=== PATIENT | female | born 1950 | race African-American/Black ===

== ENCOUNTER → 2017-02-28 | Day surgery (SDC) | payer BC ==
[~2017-02-28] MED LIST: AMLO10TA2 PO; ASPI-630 PO; ATOR20TA58 PO; DABI150C PO; DIPY75TA PO; DOXA1TAB2 PO; IV RINGERS,LACTATED 1000ML 1,000 ML IV SCH; LISI40TA PO; METF500T4 PO; METO-247 PO; PANT40TA5 PO; POTA20PA21 PO
--- NOTE | 2017-02-28 09:30 | PDOC1 ---
HISTORY & PHYSICAL H&P Chrissy Gaytan 1950 02/01/2017 02:40 PM 06/05 [employer] [facility] [address] [place] [address]. [phone] Patient: Chrissy Gaytan Date of : 1950 Date: 02/01/2017 2:40 PM Visit Type: Office Visit This 66 year old female presents for Screening colonoscopy and abnormal LFT. History of Present Illness: 1. Screening colonoscopy No prior screening. Denies risk factors. Pertinent negatives include abdominal pain, change in bowel habits, change in stool caliber, constipation, decreased appetite, diarrhea, melena, nausea, rectal bleeding, vomiting, weight gain and weight loss. Additional information: No family history of colon cancer , No family history of Crohn's/colitis, No NSAID/ASA use and last colonoscopy > 10 yrs ago. 2. abnormal LFT Has mild elevation of ALT in october. Had history of autoimmune hepatitis in past. Has not been on any meds for that. INTAKE COMMENTS: Intake Comments: Nurse Note: the pt is here today to schedule a colonoscopy, she states that she had her last one in 2006 or 2007. 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 The significance of this uncertain. Ho Hepatic mass or ductal dilation is identified. Status post cholecystecomy 05/26/2014 Liver Biopsy 09/03/2014 abnormal Imp: mild mixed portal inflammation, with focal plasma cells, mild interface activity, mild interlobular bile duct injury , mild to moderate spotty lobular necroinflammatory activity and no evidence of fibrosis. 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 Test Ordered Ordering Comments Modifier Abdomen Ultrasound; Complete 05/20/2014 Liver Biopsy 09/03/2014 Medications (Active): Started Medication Directions Instruction Stopped 09/12/2016 AMLODIPINE BESYLATE 10 MG TAB TAKE ONE TABLET DAILY 10/27/2016 atorvastatin 10 mg tablet take 1 tablet by oral route every day 02/25/2016 dipyridamole 75 mg tablet take 2 tablet by oral route 2 times every day 06/09/2016 doxazosin 1 mg tablet take 1 tab po nightly 10/27/2016 ibuprofen 600 mg tablet take 1 tablet by mouth as needed once a day 10/27/2016 lisinopril 40 mg tablet take 1 tablet by oral route every day 07/28/2016 metformin 500 mg tablet take 1 tablet by oral route every day with morning and evening meals 06/10/2016 metoprolol succinate ER 100 mg tablet,extended release 24 hr take 1 tablet by oral route every day 09/12/2016 POTASSIUM CL ER 20 MEQ TABLET TAKE 1 TABLET BY MOUTH DAILY WITH FOOD 10/27/2016 Protonix 40 mg tablet,delayed release take 1 tablet by oral route every day Allergies: Ingredient Reaction Medication Name Comment NO KNOWN ALLERGIES REVIEW OF SYSTEMS System Neg/Pos Details Constitutional Negative Chills, fever, malaise, weight gain and weight loss. ENMT Negative Sore throat. Eyes Negative Double vision. Respiratory Negative Dyspnea and wheezing. Cardio Negative Chest pain and irregular heartbeat/palpitations. GI Positive See HPI. GI Negative Abdominal pain, change in bowel habits, change in stool caliber, constipation, decreased appetite, diarrhea, melena, nausea, see HPI, rectal bleeding and vomiting. Negative Dysuria and hematuria. Endocrine Negative Cold intolerance and heat intolerance. Psych Negative Anxiety. Integumentary Negative Hives and rash. MS Negative Joint pain. Octaviano/Lymph Negative Easy bleeding and easy bruising. Allergic/Immuno Negative Food allergies. PHYSICAL EXAM: Exam Findings Details Constitutional Normal Well developed. Eyes Normal Conjunctiva - Right: Normal, Left: Normal. Sclera - Right: Normal, Left: Normal. Nasopharynx Normal Lips/teeth/gums - Normal. Neck Exam Normal Inspection - Normal. Thyroid gland - Normal. Respiratory Normal Inspection - Normal. Auscultation - Normal. Cardiovascular Normal Regular rate and rhythm. No murmurs, gallops, or rubs. Vascular Normal Pulses - Carotids: Normal, Femoral: Normal, Dorsalis pedis: Normal. Abdomen Normal Inspection - Normal. Anterior palpation - No guarding. No abdominal tenderness. No hepatic enlargement. No splenic enlargement. No hernia. No Ascites. Skin Normal Inspection - Normal. Extremity Normal No edema. Psychiatric Normal Oriented to time, place, person, and situation. Appropriate mood and effect. Assessment/Plan # Detail Type Description 1. Assessment Abnormal liver enzymes (R74.8). 2. Assessment Abnormal liver function test (R79.89). Patient Plan LFt today Plan Orders LFT to be performed today. 3. Assessment Encounter for screening colonoscopy (Z12.11). Patient Plan schedule colonoscopy at [facility] Plan Orders Further diagnostic evaluations ordered today include(s) Colonoscopy to be performed today. She is to schedule a follow-up visit with Junior Ashley MD upon completion of work-up Electronically signed by: Junior Ashley MD 02/01/2017 03:44 PM Document generated by: Junior Ashley 02/01/2017 03:44 PM Varsha Zamora MD, Family Practice; Nikko Miller MD Internal Medicine; Olivia Kim MD, Internal Medicine; Madi Ashley MD Internal Medicine; Junior Ashley MD, Gastroenterology; Trey Benitez MD, Rheumatology, [facility], Physical Medicine/Rehab JIvan Stover APRN ------ 02/28/17 Patient seen and examined. No change in H&P. JUNIOR ASHLEY MD Feb 28, 2017 09:30
[2017-02-28 11:21] VITALS: BP 148/82
--- NOTE | 2017-03-01 13:21 | PATHOLOGY ---
PATHOLOGY REPORT * * * * * * * * FINAL DIAGNOSIS: A. Colon, ascending, biopsy: - Adenomatous polyp. B. Colon, cecum, biopsy: - Adenomatous polyp. (SKM:davian; 03/01/2017) REPORT ELECTRONICALLY SIGNED BY: Porfirio Espinoza M.D. DATE/TIME: 03/01/2017 13:20 * * * * * * * * GROSS PATHOLOGY: A. Received in formalin labeled "Thu Hill, ascending colon polyp," are two segments of betancourt soft tissue measuring 0.1 and 0.6 cm in maximum dimension. The specimen is submitted entirely in cassette A1. B. Received in formalin labeled "Thu Hill, cecum polyp," is a segment of betancourt soft tissue measuring 0.3 cm in maximum dimension. The specimen is submitted entirely in cassette B1. ([facility]; 02/28/17) INITIAL CPT CODE(S): A; 53670 B; 69156 Professional services performed [place] [place] [address] Technical services performed by [facility] at [address] [place] [address]. SPECIMEN(S) RECEIVED: A.Ascending colon polyp B.Cecum polyp CLINICAL HISTORY: Colon screening PATIENT: THU HILL /AGE: 1 1950 (Age: 66) PATIENT #: [id number] ALT CASE #: SPECIMEN COLLECTION DATE: 02/28/2017 SPECIMEN RECEIVED DATE: 02/28/2017 [facility] - [address] [place] [address] - PHONE: [phone] * * * END OF REPORT * * *
== END | disposition home or self-care (01) ==
LOC: SURG 09:24
PROVIDERS: ATTEND Internal Medicine Gastroenterology
DX: D12.4 Benign neoplasm of descending colon (principal); K57.30 Diverticulosis of large intestine without perforation or abscess without bleeding; E78.00 Pure hypercholesterolemia, unspecified; I10 Essential (primary) hypertension; E66.9 Obesity, unspecified; E11.9 Type 2 diabetes mellitus without complications; Z86.73 Personal history of transient ischemic attack (TIA), and cerebral infarction without residual deficits; Z86.69 Personal history of other diseases of the nervous system and sense organs; Z90.710 Acquired absence of both cervix and uterus; Z90.49 Acquired absence of other specified parts of digestive tract; Z86.39 Personal history of other endocrine, nutritional and metabolic disease
CPT/HCPCS: 82962; 88305